=== PATIENT | male | born 1950 | race African-American/Black ===

== ENCOUNTER 2018-03-17 11:02 | Day surgery (SDC) | payer BC ==
[2018-03-17] MEDS ORDERED: Ringers Lactate 1,000 ML IV ONE ×2 (11:40→15:05)
[2018-03-17] MEDS ORDERED: GENTAMICIN 100 MG/100 ML BAG 100 MG/100 ML BAG IV ONE (11:40)
[2018-03-17] MEDS ORDERED: FENTANYL CITR 100 MCG/2 ML ONE ×2 (11:56→12:53)
[2018-03-17] MEDS ORDERED: PROPOFOL 200 MG/20 ML VIAL IV ONE (12:52)
[2018-03-17] MEDS ORDERED: MIDAZOLAM HCL 2 MG/2 ML INJ ONE (12:53)
[2018-03-17] MEDS ORDERED: ROCURONIUM 50 MG/5 ML VIAL IV ONE (12:54)
[2018-03-17] MEDS ORDERED: LIDOCAINE 2% MPF 5 ML VIAL ONE (12:54)
[2018-03-17] MEDS ORDERED: CEFAZOLIN SODIUM 1 GM/VIAL ONE (13:21)
[2018-03-17] MEDS ORDERED: LIDOCAINE 1% MPF 30 ML VIAL ONE (13:33)
[2018-03-17] MEDS ORDERED: Phenylephrine HCl 10 MG/ML 1 ML VIAL ONE (14:12)
[2018-03-17] MEDS ORDERED: BUPIVACAINE 0.5% PF 10 ML VIAL ONE (14:42)
[2018-03-17] MEDS ORDERED: GLYCOPYRROLATE 0.2 MG/ML SYR ONE (14:44)
[2018-03-17] MEDS ORDERED: MEPERIDINE HCL 50 MG/ML AMP ONE (14:56)
[2018-03-17] MEDS: MEPERIDINE HCL 50 MG/ML AMP ONE ×3 (14:58→15:13)
[2018-03-17] MEDS ORDERED: Oxycodone HCl/Acetaminophen 1 TAB TAB ONE (16:08)
[2018-03-17] MEDS ORDERED: OXYBUTYNIN CHLORIDE 5 MG TAB ONE (16:44)
== END 2018-03-17 17:25 | disposition home or self-care (01) ==
LOC: OR 11:02
PROVIDERS: ATTEND Urology
PROC: 0VTC0ZZ Resection of Bilateral Testes, Open Approach (ICD-10-PCS; principal; 2018-03-17 13:00)
DX: C61 Malignant neoplasm of prostate (principal); Z88.6 Allergy status to analgesic agent; Z90.49 Acquired absence of other specified parts of digestive tract; Z80.9 Family history of malignant neoplasm, unspecified; Z83.3 Family history of diabetes mellitus; Z82.49 Family history of ischemic heart disease and other diseases of the circulatory system
CPT/HCPCS: 88302; 88305; J0690; J1580; J2175; J2250; J2370; J3010

== ENCOUNTER 2023-11-10 14:55 | Observation (INO) | payer BC, OTHER ==
[2023-11-10 15:40] LABS: PTT, Activated Partial Thromb 33.3 SECONDS (24.3-36.9)
[2023-11-10 15:41] LABS: PT Prothrombin Time 12.4 SECONDS (9.5-12.5); Protime INR 1.13
[2023-11-10 15:53] LABS: Hematocrit 17.4 % (39.6-49.0); MCH 31.6 pg (27.0-35.0); MCHC 34.6 g/dL (32.0-36.0); MCV 91.3 fL (80-100); MPV 7.3 fL (7.6-11.3); Platelets 129 thou/uL (152-406); RBC Red Blood Cell Count 1.91 M/uL (4.33-5.43); Red Cell Distribution Width 14.4 % (12.1-15.2)
[2023-11-10 15:54] LABS: Absolute Lymphocytes (CBC) 0.3 K/uL (0.7-4.9); Absolute Monocytes 0.6 K/uL (0.1-1.3); Absolute Neutrophil 0.6 K/uL (1.8-8.0); Albumin 3.8 g/dL (3.4-5.0); Albumin/Globulin Ratio 1.1 (1.1-1.8); Anion Gap 8.8 mEq/L (5.0-15.0); Basophils % 0.2 % (0-1.3); Bilirubin Direct 0.2 mg/dL (0-0.2); Bilirubin Indirect, Calculated 0.3 mg/dL (0.2-0.8); Bilirubin Total 0.5 mg/dL (0.2-1.0); Eosinophils % 3.1 % (0-4.4); Ferritin 1399.4 ng/mL (26-388); Globulin 3.6 g/dL (2.3-3.5); Lymphocytes % 17.2 % (15.3-44.8); Monocytes % 40.1 % (3.3-12.3); Neutrophils % 39.4 % (41.7-73.7); Potassium 3.8 mEq/L (3.5-5.1); Protein, Total 7.4 g/dL (6.4-8.2); Troponin High Sensitivity 3.2 pg/mL (<58.9)
--- NOTE | 2023-11-10 16:09 | ER ---
Nurse's Notes [facility] Name: Jasmeet Rodriguez Age: 73 yrs Sex: Male : 1950 Arrival Date: 11/10/2023 Time: 14:55 Bed 2 Private MD: Diagnosis: Anemia, prostate cancer Presentation: 11/09 15:08 Chief complaint: Patient states: he has been sent by Dr. Murrieta for abnormal hemoglobin ap3 levels. patient reports increased weakness when ambulating as well. Coronavirus screen: At this time, the client does not indicate any symptoms associated with coronavirus-19. Ebola Screen: No symptoms or risks identified at this time. Initial Sepsis Screen: Does the patient meet any 2 criteria? No. Patient's initial sepsis screen is negative. Does the patient have a suspected source of infection? No. Patient's initial sepsis screen is negative. Risk Assessment: Do you want to hurt yourself or someone else? Patient reports no desire to harm self or others. Onset of symptoms is unknown. 15:08 Method Of Arrival: Wheelchair ap3 15:08 Acuity: NANCY 3 ap3 Triage Assessment: 15:11 General: Appears in no apparent distress. Behavior is calm, cooperative, appropriate ap3 for age, Reports fatigue for. Pain: Denies pain. Neuro: Level of Consciousness is awake, alert, obeys commands, Oriented to person, place, time, situation, Appropriate for age Reports weakness on continued ambulation. Cardiovascular: Patient's skin is warm and dry. Respiratory: Airway is patent Respiratory effort is even, unlabored, Respiratory pattern is regular, symmetrical. Historical: - Allergies: 15:09 hydrocodone; ap3 - PMHx: 15:09 Hypertensive disorder; Hypercholesterolemia; prostate cancer; ap3 - Immunization history:: Client reports receiving the 2nd dose of the Covid vaccine, Pneumococcal vaccine is up to date, Flu vaccine is up to date. - Infectious Disease History:: Denies. - Social history:: Smoking status: Patient denies any tobacco usage or history of. Screenin:11 Abuse screen: Denies threats or abuse. Nutritional screening: No deficits noted. ap3 Tuberculosis screening: No symptoms or risk factors identified. 16:55 [facility] ED Fall Risk Assessment (Adult) History of falling in the last 3 months, db including since admission No falls in past 3 months (0 pts) Confusion or Disorientation No (0 pts) Intoxicated or Sedated No (0 pts) Impaired Gait No (0 pts) Mobility Assist Device Used No (0 pt) Altered Elimination No (0 pt) Score/Fall Risk Level 0 - 2 = Low Risk Oriented to surroundings, Maintained a safe environment. Assessment: 15:30 Reassessment: Patient appears in no apparent distress at this time. Patient and/or db family updated on plan of care and expected duration. Pain level reassessed. Patient is alert, oriented x 3, equal unlabored respirations, skin warm/dry/pink. General: Appears in no apparent distress. comfortable, Behavior is calm, cooperative. Neuro: Level of Consciousness is awake, alert, obeys commands, Oriented to person, place, time, situation. Respiratory: Airway is patent Respiratory effort is even, unlabored, Respiratory pattern is regular, symmetrical. 16:55 Reassessment: Patient appears in no apparent distress at this time. Patient and/or db family updated on plan of care and expected duration. Pain level reassessed. Patient is alert, oriented x 3, equal unlabored respirations, skin warm/dry/pink. PATIENT BLOOD PRODUCTS STARTED SEE TRANSFUSION RECORD SHEET. Vital Signs: 15:08 BP 136 / 80; Pulse 85; Resp 19; Temp 97.7; Pulse Ox 98% on R/A; Weight 68.95 kg; Height ap3 5 ft. 11 in. ; 15:45 BP 157 / 4; Pulse 72; Resp 18; Pulse Ox 100% on R/A; db 16:00 BP 128 / 72; Pulse 71; Resp 14; Pulse Ox 100% ; db 16:30 BP 118 / 71; Pulse 72; Resp 18; Pulse Ox 100% on R/A; db 17:00 BP 115 / 69; Pulse 73; Resp 14; Pulse Ox 100% ; db 17:33 BP 106 / 65; Pulse 71; Resp 14; Pulse Ox 100% ; db 15:08 Body Mass Index 21.20 (68.95 kg, 180.34 cm) ap3 Alcides Coma Score: 16:55 Eye Response: spontaneous(4). Motor Response: obeys commands(6). Verbal Response: db oriented(5). Total: 15. Trauma Score (Adult): 16:55 Eye Response: spontaneous(1); Verbal Response: oriented(1); Motor Response: obeys db commands(2); Systolic BP: > 89 mm Hg(4); Respiratory Rate: 10 to 29 per min(4); [place] Score: 15; Trauma Score: 12 ED Course: 14:58 Patient arrived in ED. im 14:59 Woody Sanabria MD is Attending Physician. sp3 15:04 Cindy Burrows, RN is Primary Nurse. db 15:09 Triage completed. ap3 15:11 Patient has correct armband on for positive identification. Bed in low position. Call ap3 light in reach. Side rails up X 1. Adult w/ patient. 15:12 Arm band placed on right wrist. ap3 15:14 EKG done, by ED staff, reviewed by Woody Sanabria MD. bc6 15:15 Initial lab(s) drawn, by me, sent to lab. Inserted saline lock: 20 gauge in right db antecubital area, using aseptic technique. Blood collected. 15:17 XRAY Chest (1 view) In Process Unspecified. EDMS 15:40 Client placed on continuous cardiac and pulse oximetry monitoring. NIBP monitoring db applied. cafeteria monitor on. Pulse ox on. NIBP on. Warm blanket given. Consent for blood and/or blood product transfusion explained by staff, explained by physician, signed by patient. 16:08 Joanna Muniz MD is Hospitalizing Provider. sp3 16:55 Provided Education on: Blood Transfusion. db 16:55 No provider procedures requiring assistance completed. Patient admitted, IV remains in db place. Administered Medications: No medications were administered Medication: 16:53 VIS not applicable for this client. db Outcome: 16:09 Decision to Hospitalize by Provider. sp3 16:55 Admitted to ER Hold. Please see [facility] for further documentation. db 16:55 Condition: stable 16:55 Instructed on the need for admit, 18:02 Patient left the ED. ll1 Signatures: Dispatcher [employer] EDMS Shellie Morales RN RN ap3 Jose Lea RN RN 1 Woody Sanabria MD MD sp3 Cindy Burrows, RN RN db Davina Cruz 6 Violet Silva im
--- NOTE | 2023-11-10 16:09 | EDPHYS ---
Physician Documentation [facility] Name: Jasmeet Rodriguez Age: 73 yrs Sex: Male : 1950 Arrival Date: 11/10/2023 Time: 14:55 Bed 2 Private MD: ED Physician Woody Sanabria HPI: 11/09 15:20 This 73 yrs old Black Male presents to ER via Wheelchair with complaints of anemia hgb sp3 5.7. 15:20 . sp3 15:44 73-year-old male with history of prostate cancer, hypertension, hyperlipidemia, sp3 prostate cancer no prior GI bleed with recent colonoscopy performed at outside facility now presents to ED referred by hematology/oncology for continued drop in hemoglobin from 11-9 to now 5.7. Patient was sent for transfusion and further workup inpatient. Patient has no significant complaints other than fatigue and generalized weakness. He denies any fever, URI symptoms, headache, chest pain, shortness of breath, dyspnea on exertion, abdominal pain, vomiting, diarrhea, or any other signs or symptoms on ROS at this time.. Historical: - Allergies: 15:09 hydrocodone; ap3 - PMHx: 15:09 Hypertensive disorder; Hypercholesterolemia; prostate cancer; ap3 - Immunization history:: Client reports receiving the 2nd dose of the Covid vaccine, Pneumococcal vaccine is up to date, Flu vaccine is up to date. - Infectious Disease History:: Denies. - Social history:: Smoking status: Patient denies any tobacco usage or history of. ROS: 15:45 Constitutional: Negative for fever, chills, and weight loss, Eyes: Negative for injury, sp3 pain, redness, and discharge, Neck: Negative for injury, pain, and swelling, Cardiovascular: Negative for chest pain, palpitations, and edema, Respiratory: Negative for shortness of breath, cough, wheezing, and pleuritic chest pain, Skin: Negative for injury, rash, and discoloration, Neuro: Negative for headache, weakness, numbness, tingling, and seizure, Psych: Negative for depression, anxiety, suicide ideation, homicidal ideation, and hallucinations, Allergy/Immunology: Negative for hives, rash, and allergies, Endocrine: Negative for neck swelling, polydipsia, polyuria, polyphagia, and marked weight changes, 15:45 All other systems are negative, Exam: 15:46 Constitutional: This is a well developed, well nourished patient who is awake, alert, sp3 and in no acute distress. Head/Face: Normocephalic, atraumatic. Eyes: Pupils equal round and reactive to light, extra-ocular motions intact. Lids and lashes normal. Conjunctiva and sclera are non-icteric and not injected. Cornea within normal limits. Periorbital areas with no swelling, redness, or edema. Neck: Trachea midline, no thyromegaly or masses palpated, and no cervical lymphadenopathy. Supple, full range of motion without nuchal rigidity, or vertebral point tenderness. No Meningismus. Chest/axilla: Normal chest wall appearance and motion. Nontender with no deformity. No lesions are appreciated. Cardiovascular: Regular rate and rhythm with a normal S1 and S2. No gallops, murmurs, or rubs. Normal PMI, no JVD. No pulse deficits. Respiratory: Lungs have equal breath sounds bilaterally, clear to auscultation and percussion. No rales, rhonchi or wheezes noted. No increased work of breathing, no retractions or nasal flaring. Abdomen/GI: Soft, non-tender, with normal bowel sounds. No distension or tympany. No guarding or rebound. No evidence of tenderness throughout. Back: No spinal tenderness. No costovertebral tenderness. Full range of motion. Skin: Warm, dry with normal turgor. Normal color with no rashes, no lesions, and no evidence of cellulitis. MS/ Extremity: Pulses equal, no cyanosis. Neurovascular intact. Full, normal range of motion. Neuro: Awake and alert, GCS 15, oriented to person, place, time, and situation. Cranial nerves II-XII grossly intact. Motor strength 5/5 in all extremities. Sensory grossly intact. Cerebellar exam normal. Normal gait. Psych: Awake, alert, with orientation to person, place and time. Behavior, mood, and affect are within normal limits. 16:16 ECG was reviewed by the Attending Physician. EKG demonstrates normal sinus rhythm at 80 sp3 bpm with normal intervals, normal QRS, normal axis, normal ST's ST segments without evidence of acute ischemia. Vital Signs: 15:08 BP 136 / 80; Pulse 85; Resp 19; Temp 97.7; Pulse Ox 98% on R/A; Weight 68.95 kg; Height ap3 5 ft. 11 in. ; 15:45 BP 157 / 4; Pulse 72; Resp 18; Pulse Ox 100% on R/A; db 16:00 BP 128 / 72; Pulse 71; Resp 14; Pulse Ox 100% ; db 16:30 BP 118 / 71; Pulse 72; Resp 18; Pulse Ox 100% on R/A; db 17:00 BP 115 / 69; Pulse 73; Resp 14; Pulse Ox 100% ; db 17:33 BP 106 / 65; Pulse 71; Resp 14; Pulse Ox 100% ; db 15:08 Body Mass Index 21.20 (68.95 kg, 180.34 cm) ap3 [place] Coma Score: 16:55 Eye Response: spontaneous(4). Motor Response: obeys commands(6). Verbal Response: db oriented(5). Total: 15. Trauma Score (Adult): 16:55 Eye Response: spontaneous(1); Verbal Response: oriented(1); Motor Response: obeys db commands(2); Systolic BP: > 89 mm Hg(4); Respiratory Rate: 10 to 29 per min(4); Alcides Score: 15; Trauma Score: 12 MDM: 14:59 Patient medically screened. sp3 15:46 Data reviewed: vital signs, nurses notes, lab test result(s), radiologic studies. ED sp3 course: 73-year-old male with prostate cancer and presumably aplastic anemia. Clinically patient does not have GI bleed or other source of bleeding. Hemodynamically patient is stable. 2 units of PRBCs have been ordered along with anemia workup. Patient will be admitted to the hospitalist service.. 11/09 15:00 Order name: Basic Metabolic Panel sp3 11/09 15:00 Order name: CBC with Diff sp3 11/09 15:00 Order name: LFT's sp3 11/09 15:00 Order name: Magnesium sp3 11/09 15:00 Order name: NT PRO-BNP sp3 11/09 15:00 Order name: PT-INR; Complete Time: 15:47 sp3 11/09 15:00 Order name: Troponin HS sp3 11/09 15:00 Order name: Ptt, Activated; Complete Time: 15:47 sp3 11/09 15:00 Order name: Type And Screen sp3 11/09 15:01 Order name: Ferritin sp3 11/09 15:01 Order name: TRANSFERRIN SAT/IRON BINDING 3 11/09 15:48 Order name: Packed RBC Leukored [facility] 11/09 16:35 Order name: CBC with Automated Diff EDMS 11/09 16:35 Order name: CBC with Automated Diff EDMS 11/09 16:35 Order name: Comprehensive Metabolic Panel [facility] 11/09 16:35 Order name: Comprehensive Metabolic Panel [facility] 11/09 16:35 Order name: Protime (+INR) EDMS 11/09 16:35 Order name: Protime (+INR) MS 11/09 16:35 Order name: PTT, Activated Partial Thromb EDMS 11/09 16:35 Order name: PTT, Activated Partial Thromb EDMS 11/09 16:35 Order name: Vitamin B12 Level [facility] 11/09 16:36 Order name: Retic Count [facility] 11/09 16:42 Order name: ABO/RH no charge; Complete Time: 17:21 [facility] 11/09 15:00 Order name: XRAY Chest (1 view); Complete Time: 17:21 3 11/09 15:00 Order name: EKG; Complete Time: 15:01 3 11/09 15:00 Order name: Cardiac monitoring; Complete Time: 15:17 3 11/09 15:00 Order name: EKG - Nurse/Tech; Complete Time: 15:17 3 11/09 15:00 Order name: IV Saline Lock; Complete Time: 15:54 3 11/09 15:00 Order name: Labs collected and sent; Complete Time: 15:54 3 11/09 15:00 Order name: O2 Per Protocol; Complete Time: 15:17 3 11/09 15:00 Order name: O2 Sat Monitoring; Complete Time: 15:17 3 11/09 15:00 Order name: Transfuse: 2 Units PRBCs; Complete Time: 17:03 sp3 Administered Medications: No medications were administered Disposition Summary: 11/10/23 16:09 Hospitalization Ordered Notes: Hospitalization Status: Inpatient Admission sp3 Provider: Joanna Muniz Location: Telemetry/MedSurg (Inpatient) sp3 Condition: Stable sp3 Problem: an acute exacerbation sp3 Symptoms: have worsened sp3 Bed/Room Type: Standard 3 Room Assignment: 205(11/10/23 16:38) bd Diagnosis - Anemia, prostate cancer sp3 Forms: - Medication Reconciliation Form sp3 - SBAR form sp3 - Leadership Thank You Letter sp3 Signatures: Dispatcher [employer] ED Tamera Iverson Shellie Mendoza RN RN ap3 Woody Sanabria MD MD sp3 Corrections: (The following items were deleted from the chart) 15:01 15:01 BASIC METABOLIC PANEL+C.LAB.BRZ ordered. EDMS EDMS 15:01 15:01 CBC+H.LAB.BRZ ordered. EDMS EDMS 15:01 15:01 HEPATIC FUNCTION+C.LAB.BRZ ordered. EDMS EDMS 15:01 15:01 MAGNESIUM+C.LAB.BRZ ordered. EDMS EDMS 15:01 15:01 PROBNP+C.LAB.BRZ ordered. EDMS EDMS 15:01 15:01 PROTIME (+INR)+COAG.LAB.BRZ ordered. EDMS EDMS 15:01 15:01 Troponin High Sensitivity+C.LAB.BRZ ordered. EDMS EDMS 15:01 15:01 PTT, ACTIVATED+COAG.LAB.BRZ ordered. EDMS EDMS 15:01 15:01 TYPE AND SCREEN+BB.LAB.BRZ ordered. EDMS EDMS 15:05 15:05 BB Add On+BB.LAB.BRZ ordered. EDMS EDMS 15:38 15:01 PACKED RBC LEUKORED+BB.LAB.BRZ ordered. EDMS EDMS 15:38 15:04 ABO/RH typing ordered. EDMS EDMS 15:38 15:04 Antibody Screen ordered. EDMS EDMS 16:38 16:09 sp3 bd
[2023-11-10] MEDS ORDERED: ACETAMINOPHEN 500 MG TAB PO PRN (16:30)
[2023-11-10] MEDS ORDERED: MORPHINE 4 MG/ML SYR IV PRN (16:30)
[2023-11-10] MEDS ORDERED: ONDANSETRON 4 MG/2 ML VIAL IV PRN (16:30)
--- NOTE | 2023-11-10 16:35 | P.HP ---
Patient History Allergies hydrocodone Allergy (Verified 03/15/18 14:30) Itching Home Medications: Acetaminophen [Tylenol Extra Strength] 500 mg PO PRN PRN 03/15/18 Tramadol HCl [Ultram] 50 mg PO Q6H PRN 03/15/18 Physical Examination - Studies Laboratory Data (last 24 hrs) 11/10/23 11/10/23 11/10/23 15:15 15:15 15:15 WBC 1.50 L Hgb 6.0 L Hct 17.4 L Plt Count 129 L PT 12.4 INR 1.13 APTT 33.3 Sodium 135 L Potassium 3.8 BUN 15 Creatinine 0.99 Glucose 100 Magnesium 2.0 Total Bilirubin 0.5 AST 15 ALT 16 Alkaline Phosphatase 52 Assessment & Plan - Advance Directives Does patient have a Living Will: No Does patient have a Durable POA for Healthcare: No
[2023-11-10] MEDS ORDERED: NA CHLORIDE 0.9% 1,000 ML ONE (16:48)
--- NOTE | 2023-11-10 17:19 | RAD REPORT ---
EXAM DESCRIPTION: Sofia Single View11/10/2023 3:15 pm CLINICAL HISTORY: near syncope/anemia COMPARISON: Chest Pa And Lat (2 Views) dated 03/01/2018 TECHNIQUE: Portable AP view of the chest. FINDINGS: The lungs are clear. No pneumothorax or effusion. The cardiomediastinal contours are unre markable. IMPRESSION: No acute cardiopulmonary process.
[2023-11-10 18:19] VITALS: O2SAT 100
[2023-11-10 18:40] VITALS: BMI 20.2
[2023-11-10 19:23] LABS: Differential Total Cells Count 100; Eosinophils 3 % (0-3); Lymphocytes 18 % (15-42); Monocytes 30 % (0-10); Nucleated Red Blood Cells 6 /100WBC; Segmented Neutrophils 49 % (40-80)
[2023-11-10 19:27] LABS: Anisocytosis 2+; Blood Morphology Comment NOTED (NOT SEEN); Hypochromasia 1+; Platelet Estimate DECR
[2023-11-10] MEDS: NA CHLORIDE 0.9% 250 ML ONE (20:16)
[2023-11-10 20:55] LABS: Poikilocytosis 2+; Polychromasia 1+
[2023-11-10 20:56] LABS: Burr Cells 1+; Ovalocytes SLIGHT; Teardrop Cell FEW
[2023-11-11 06:56] LABS: Absolute Lymphocytes (CBC) 0.2 K/uL (0.7-4.9); Absolute Monocytes 0.6 K/uL (0.1-1.3); Absolute Neutrophil 0.5 K/uL (1.8-8.0); Basophils % 0.1 % (0-1.3); Eosinophils % 3.1 % (0-4.4); Hemoglobin 7.9 g/dL (13.6-17.9); Lymphocytes % 12.7 % (15.3-44.8); MCH 29.9 pg (27.0-35.0); MCHC 34.3 g/dL (32.0-36.0); MPV 6.8 fL (7.6-11.3); Neutrophils % 38.1 % (41.7-73.7); Nucleated RBC Absolute Count 0.1 (0-0); Nucleated Red Blood Cells % 6.4 % (0-0); Platelets 114 thou/uL (152-406); RBC Red Blood Cell Count 2.64 M/uL (4.33-5.43); Red Cell Distribution Width 15.6 % (12.1-15.2)
[2023-11-11 07:02] LABS: PT Prothrombin Time 12.5 SECONDS (9.5-12.5); PTT, Activated Partial Thromb 32.8 SECONDS (24.3-36.9); Protime INR 1.14
[2023-11-11 07:10] LABS: Percent Reticulocyte Count 2.4 % (0.4-2.05); RBC Red Blood Cell Count 2.64 M/uL (4.33-5.43)
--- NOTE | 2023-11-11 07:29 | P.PN ---
Subjective Date of Service: 11/11/23 73-year-old -[place] male with history of prostate cancer, hypertension, hyperlipidemia, prostate cancer no prior GI bleed with recent colonoscopy performed at outside facility now presents to ED referred by Dr. Duong hematology/oncology for continued drop in hemoglobin from 11-9 to now 5.7. Received 2 units of packed red blood cells, repeat H&H 7.9, no reported active GI bleeding Will need to follow-up with GI outpatient Review of Systems Per HPI Physical Examination - Vital Signs Temperature: 99.2 F Blood Pressure: 100/68 Pulse: 64 Respirations: 15 Pulse Ox (%): 100 - Physical Exam General: Alert, In no apparent distress, Oriented x3, Other (Generalized wea kness) HEENT: Atraumatic, PERRLA Respiratory: Clear to auscultation bilaterally, Normal air movement Cardiovascular: Normal pulses, Regular rate/rhythm Gastrointestinal: Normal bowel sounds, Soft and benign Musculoskeletal: No clubbing, No swelling Integumentary: No rashes, No breakdown Neurological: Normal speech, Normal strength at 5/5 x4 extr - Studies Laboratory Data (last 24 hrs) 11/10/23 11/10/23 11/10/23 15:15 15:15 15:15 WBC 1.50 L Hgb 6.0 L Hct 17.4 L Plt Count 129 L PT 12.4 INR 1.13 APTT 33.3 Sodium 135 L Potassium 3.8 BUN 15 Creatinine 0.99 Glucose 100 Magnesium 2.0 Total Bilirubin 0.5 AST 15 ALT 16 Alkaline Phosphatase 52 Assessment And Plan - Plan Assessment plan Prostate cancer Symptomatic anemia Admit inpatient, transfused 3 units, trend H&H, Follow-up with Dr. Duong outpatient Iron studies Will need to follow-up with GI outpatient evaluation for colonoscopy for GI bleed Leukopenia Thrombocytopenia Cefepime 2 g every 24 Urine cultures blood cultures, monitor for signs symptom of infection, Reverse isolation Monitor platelets, monitor for signs symptoms Essential hypertension Hyperlipidemia Resume appropriate home medications Full code DVT SCDs Diet cardiac Disposition, home independent prior Discharge Plan: Home - Code Status/Comfort Care Code Status: Full Code Critical Care: No Time Spent Managing PTS Care (In Minutes): 35
--- NOTE | 2023-11-11 07:31 | P.DS ---
Admission Date: 11/10/23 Discharge Date: 11/11/23 Disposition: ROUTINE DISCHARGE Discharge Condition: GOOD Brief History of Present Illness: 73-year-old -[place] male with history of prostate cancer, hypertension, hyperlipidemia, prostate cancer no prior GI bleed with recent colonoscopy performed at outside facility now presents to ED referred by Dr. Duong hematology/oncology for continued drop in hemoglobin from 11-9 to now 5.7. Received 2 units of packed red blood cells, repeat H&H 7.9, no reported active GI bleeding Will need to follow-up with GI outpatient - Physical Exam General: Alert, In no apparent distress, Oriented x3, Other (Generalized weakness) HEENT: Atraumatic, PERRLA Respiratory: Clear to auscultation bilaterally, Normal air movement Cardiovascular: Normal pulses, Regular rate/rhythm Gastrointestinal: Normal bowel sounds, Soft and benign Musculoskeletal: No clubbing, No swelling Integumentary: No rashes, No breakdown Neurological: Normal speech, Normal strength at 5/5 x4 extr Hospital Course: 73-year-old -[place] male with history of prostate cancer, hypertension, hyperlipidemia, prostate cancer no prior GI bleed with recent colonoscopy performed at outside facility now presents to ED referred by Dr. Duong hematology/oncology for continued drop in hemoglobin from 11-9 to now 5.7. Received 2 units of packed red blood cells, repeat H&H 7.9, no reported active GI bleeding Will need to follow-up with GI outpatient, tolerating diet, no active bleeding, discharge home follow-up with PCP in 1 week Assessment Prostate cancer need to follow-up with Dr. Murrieta outpatient Symptomatic anemia, transfused 2 [id number] with hematology oncology for anemia/hematocrit monitoring Will need to follow-up with GI outpatient for evaluation for colonoscopy/EGD Leukopenia, reverse contact isolation, monitor for signs and symptoms of infection, blood cultures, urine cultures ordered Thrombocytopenia-monitor for signs and symptoms of bleeding follow-up with GI output Continue home medicines as previously prescribed GOAL: Clear understanding of disease process INSTRUCTIONS: Physician Discharge Instructions: -Follow-up with PCP in 1 to 2 weeks -Please call Dr. Muniz at [phone] if any questions regarding hospital stay -Please call nursing station at [phone] if any nursing or medication questions -Return to the emergency room if symptoms worsen Diet: ADA, low sodium Activity: Fall precautions Vital Signs/Physical Exam: Temp Pulse Resp BP Pulse Ox 99.2 F 64 15 100/68 100 11/11/23 07:30 11/11/23 07:30 11/11/23 07:30 11/11/23 07:30 11/11/23 07:30 Laboratory Data at Discharge: WBC 1.30 thou/uL (4.3-10.9) L 11/11/23 06:43 Hgb 7.9 g/dL (13.6-17.9) L D 11/11/23 06:43 Hct 23.0 % (39.6-49.0) L 11/11/23 06:43 Plt Count 114 thou/uL (152-406) L 11/11/23 06:43 PT 12.5 SECONDS (9.5-12.5) 11/11/23 06:43 INR 1.14 11/11/23 06:43 APTT 32.8 SECONDS (24.3-36.9) 11/11/23 06:43 Sodium 135 mEq/L (136-145) L 11/10/23 15:15 Potassium 3.8 mEq/L (3.5-5.1) 11/10/23 15:15 BUN 15 mg/dL (7-18) 11/10/23 15:15 Creatinine 0.99 mg/dL (0.70-1.30) 11/10/23 15:15 Glucose 100 mg/dL (74-106) 11/10/23 15:15 Magnesium 2.0 mg/dL (1.6-2.4) 11/10/23 15:15 Total Bilirubin 0.5 mg/dL (0.2-1.0) 11/10/23 15:15 AST 15 U/L (15-37) 11/10/23 15:15 ALT 16 U/L (16-61) 11/10/23 15:15 Alkaline Phosphatase 52 U/L (45-117) 11/10/23 15:15 Home Medications: Acetaminophen [Tylenol Extra Strength] 500 mg PO PRN PRN 03/15/18 Tramadol HCl [Ultram] 50 mg PO Q6H PRN 03/15/18 Cefdinir [Cefdinir*] 300 mg PO BID 10 Days #20 cap 11/11/23 New Medications: Cefdinir [Cefdinir*] 300 mg PO BID 10 Days #20 cap Physician Discharge Instructions: 73-year-old -[place]une[place] male with history of prostate cancer, hypertension, hyperlipidemia, prostate cancer no prior GI bleed with recent colonoscopy performed at outside facility now presents to ED referred by Dr. Duong hemat ology/oncology for continued drop in hemoglobin from 11-9 to now 5.7. Received 2 units of packed red blood cells, repeat H&H 7.9, no reported active GI bleeding Will need to follow-up with GI outpatient, tolerating diet, no active bleeding, discharge home follow-up with PCP in 1 week Assessment Prostate cancer need to follow-up with Dr. Murrieta outpatient Symptomatic anemia, transfused 3 [id number] with hematology oncology for anemia/hematocrit monitoring Will need to follow-up with GI outpatient for evaluation for colonoscopy/EGD Leukopenia-early left shift, blood cultures, urine cultures ordered, DC home prophylactic cefdinir x 10-day Continue home medicines as previously prescribed GOAL: Clear understanding of disease process INSTRUCTIONS: Physician Discharge Instructions: -Follow-up with PCP in 1 to 2 weeks -Please call Dr. Muniz at [phone] if any questions regarding hospital stay -Please call nursing station at [phone] if any nursing or medication questions -Return to the emergency room if symptoms worsen Diet: ADA, low sodium Activity: Fall precautions Diet: AHA Activity: Fall precautions Followup: Citlali Varghese MD [Primary Care Provider] - Monica Caal MD [ACTIVE - CAN ADMIT] - Solomon Aldana MD [ACTIVE - CAN ADMIT] - Time spent managing pt's care (in minutes): 55
[2023-11-11 07:34] LABS: Albumin 3.2 g/dL (3.4-5.0); Anion Gap 7.9 mEq/L (5.0-15.0); Bilirubin Total 0.6 mg/dL (0.2-1.0); Globulin 3.1 g/dL (2.3-3.5); Potassium 3.9 mEq/L (3.5-5.1); Protein, Total 6.3 g/dL (6.4-8.2)
[2023-11-11] MEDS ORDERED: NA CHLORIDE 0.9% 250 ML IV SCH (08:00)
[2023-11-11 08:27] VITALS: BP 106/69; TEMP 97.9
[2023-11-11] MEDS ORDERED: CEFEPIME 2 GM in NA CHLORIDE 0.9% 100 ML IV SCH (09:00)
[2023-11-11] MEDS ORDERED: FUROSEMIDE 40 MG/4 ML VIAL IV SCH (16:00)
--- NOTE | 2023-11-12 12:15 | EKG ---
Test Date: 2023-11-10 Test Time: 15:11:22 [employer] Brick Molder: DYLON MEASUREMENT RESULTS: Intervals: Rate: 80 OR: 178 QRSD: 78 QT: 398 QTc: 459 [place]: P: 66 OR: 178 QRS: 63 T: 85 INTERPRETIVE STATEMENTS: Normal sinus rhythm with sinus arrhythmia Normal ECG Compared to ECG 03/15/2018 12:54:37 Atrial premature complex(es) no longer present Electronically Signed On 11-12-23 12:13:58 CDT by Ghassan العراقي
== END 2023-11-11 09:20 | disposition home or self-care (01) ==
LOC: ER 14:55 → 2ND 16:30
PROVIDERS: ADMIT Hospitalist; ATTEND Hospitalist
PROC: 30233N1 Transfusion of Nonautologous Red Blood Cells into Peripheral Vein, Percutaneous Approach (ICD-10-PCS; principal; 2023-11-10)
DX: D64.9 Anemia, unspecified (principal); C61 Malignant neoplasm of prostate; I10 Essential (primary) hypertension; E78.5 Hyperlipidemia, unspecified
CPT/HCPCS: 93005; 87040; 85025 ×2; 80048; 36415; 86900; 83735; 86850; 85610 ×2; 85044; 86901; 80076; 85730 ×2; 86920 ×3; 84484; 82728; 82607; 83540; 80053; 83880; 84466; 71045; 99285; 36430; G0378 ×2; P9016 ×2; J7050; J7030